=== PATIENT | male | born 1970 | race Two or more races ===

== ENCOUNTER 2018-03-13 22:56 | Inpatient (IN) | payer OTHER, SELFPAY ==
[~2018-03-13] VITALS: Ht 172.7 cm; Wt 65.8 kg
--- NOTE | 2018-03-13 23:15 | NUR ---
PROVIDER IN TO EVAL.
--- NOTE | 2018-03-13 23:27 | NUR ---
PT IN RADIOLOGY. WILL ASSESS UPON RETURN.
[2018-03-13] MEDS ORDERED: LIDOCAINE 1%, 10ML INFIL ONE (23:30)
[2018-03-13] MEDS ORDERED: DIPH,PERTUSS(ACELL),TET VAC/PF 0.5 ML IM-VACC ONE (23:30)
--- NOTE | 2018-03-13 23:55 | NUR ---
PT RETURNED FROM RAD. PER TECH, PT WITH POSS BLEED. PER FAMILY, PT WAS FOUND AT BOTTOM OF THE STAIRS TONIGHT. PRESENTS WITH LAC TO BACK OF HEAD. +ETOH. PT ANSWERING QUESTIONS APPROPRIATELY OTHER THAN PLACE. OBEYS COMMANDS. PUPILS DEMETRIS. IV ACCESS OBTAINED.
[2018-03-13 23:56] LABS: BASOPHILS # (AUTO) 0.07 x10^3/uL (0-0.1); BASOPHILS % (AUTO) 1 % (0-1); EOSINOPHILS # (AUTO) 0.05 x10^3/uL (0-0.4); EOSINOPHILS % (AUTO) 1 % (1-7); LYMPHOCYTES # (AUTO) 2.48 x10^3/uL (1-3.4); LYMPHOCYTES % (AUTO) 35 % (22-44); MD NO; MEAN CORPUSCULAR HEMOGLOBIN 30.7 pg (27.5-34.5); MEAN CORPUSCULAR HGB CONC 33.9 g/dL (33.2-36.2); MEAN CORPUSCULAR VOLUME 90.4 fL (81-97); MONOCYTES # (AUTO) 0.49 x10^3/uL (0.2-0.8); MONOCYTES % (AUTO) 7 % (2-9); NEUTROPHILS # (AUTO) 4.08 x10^3/uL (1.8-6.8); NEUTROPHILS % (AUTO) 57 % (42-75); PLATELET COUNT 169 x10^3/uL (130-400); RED BLOOD COUNT 5.37 x10^6/uL (4.38-5.82); RED CELL DISTRIBUTION WIDTH 12.6 % (9.4-14.8)
[2018-03-14] MEDS ORDERED: SODIUM CHLORIDE FLUSH 10ML SYR IVF ONE
[2018-03-14 00:05] LABS: INTERNATIONAL NORMALIZED RATIO 0.98 (0.93-1.1); PROTHROMBIN TIME 10.4 Seconds (9.6-11.5)
[2018-03-14] MEDS ORDERED: DIPH,PERTUSS(ACELL),TET VAC/PF 0.5 ML IM-VACC ONE ×2 (00:06)
[2018-03-14] MEDS ORDERED: LIDOCAINE-MPF 1%, 5ML ONE (00:06)
[2018-03-14 00:08] LABS: ALANINE AMINOTRANSFERASE 41 U/L (12-78); ANION GAP 10 mmol/L (5-15); CALCIUM 8.8 mg/dL (8.5-10.1); CHLORIDE 98 mmol/L (98-107)
[2018-03-14 00:11] LABS: ALKALINE PHOSPHATASE 223 U/L (45-117); BILIRUBIN,TOTAL 0.5 mg/dL (0.2-1.0); TOTAL PROTEIN 8.3 g/dL (6.4-8.2)
[2018-03-14] MEDS ORDERED: NS + 20MEQ KCL 1,000 ML IV SCH (00:23)
--- NOTE | 2018-03-14 00:25 | NUR ---
DR CABRAL IN TO EVAL. LAC REPAIRED BY RELIEF CAPTAIN. VSS. NO ACUTE NEURO CHANGES NOTED AT THIS TIME.
[2018-03-14] MEDS ORDERED: DEXTROSE 50%, 50ML SYRINGE IVPush PRN (00:30)
[2018-03-14] MEDS ORDERED: LORazepam 1MG TABLET PO PRN (00:30)
[2018-03-14] MEDS ORDERED: POLYETHYLENE GLYCOL 17 GM PACKET PO PRN (00:30)
[2018-03-14] MEDS ORDERED: HYDROcodone/APAP 5/325 TABLET PO PRN (00:30)
[2018-03-14] MEDS ORDERED: GLUCAGON 1 MG IM PRN (00:30)
[2018-03-14] MEDS ORDERED: LORazepam 2 MG/ML, 1ML IVPush PRN (00:30)
[2018-03-14] MEDS ORDERED: DEXTROSE 4 GM TAB.CHEW PO PRN (00:30)
[2018-03-14] MEDS ORDERED: ONDANSETRON 2MG/ML, 2ML IVPush PRN (00:30)
[2018-03-14] MEDS ORDERED: DOCUSATE 100 MG CAPSULE PO PRN (00:30)
[2018-03-14] MEDS ORDERED: morphine SULFATE 10 MG/ML, 1ML IVPush PRN (00:30)
[2018-03-14] MEDS ORDERED: MORPHINE SULFATE 4 MG/ML, 1ML IVPush ONE (00:30)
[2018-03-14] MEDS ORDERED: ONDANSETRON 2MG/ML, 2ML IVPush ONE (00:30)
--- NOTE | 2018-03-14 00:35 | NUR ---
PT TO XRAY.
[2018-03-14] MEDS: ACETAMINOPHEN 325 MG TABLET PO PRN ×2 (02:28→20:10)
[2018-03-14] MEDS ORDERED: MORPHINE SULFATE 4 MG/ML, 1ML ONE (02:57)
[2018-03-14 03:38] VITALS: BP 115/74
[2018-03-14 04:00] VITALS: BP 107/74
[2018-03-14] MEDS: SODIUM CHLORIDE FLUSH 10ML SYR IVF SCH ×2 (08:00→20:11)
[2018-03-14] MEDS: INSULIN LISPRO 100 UNITS/ML, PEN SQ-INSULIN SCH ×5 (08:00→20:11)
[2018-03-14] MEDS: PANTOPROZOLE 40MG TABLET PO SCH (08:00)
[2018-03-14 09:36] LABS: MEAN CORPUSCULAR HEMOGLOBIN 30.7 pg (27.5-34.5); MEAN CORPUSCULAR HGB CONC 34.1 g/dL (33.2-36.2); MEAN CORPUSCULAR VOLUME 89.9 fL (81-97); MEAN PLATELET VOLUME 10.1 fL (7.4-10.4); PLATELET COUNT 176 x10^3/uL (130-400); RED BLOOD COUNT 4.92 x10^6/uL (4.38-5.82); RED CELL DISTRIBUTION WIDTH 12.8 % (9.4-14.8)
[2018-03-14 09:47] LABS: ALANINE AMINOTRANSFERASE 37 U/L (12-78); ALBUMIN 3.6 g/dL (3.4-5.0); ANION GAP 11 mmol/L (5-15); CALCIUM 8.2 mg/dL (8.5-10.1); CHLORIDE 106 mmol/L (98-107); CREATININE 0.91 mg/dL (0.7-1.3)
[2018-03-14 09:49] LABS: ALKALINE PHOSPHATASE 135 U/L (45-117); BILIRUBIN,TOTAL 0.7 mg/dL (0.2-1.0); TOTAL PROTEIN 7.6 g/dL (6.4-8.2)
[2018-03-14 09:50] LABS: BASOPHILS # (AUTO) 0.01 x10^3/uL (0-0.1); BASOPHILS % (AUTO) 0 % (0-1); EOSINOPHILS % (AUTO) 0 % (1-7); LYMPHOCYTES % (AUTO) 13 % (22-44); MD SCAN; MONOCYTES # (AUTO) 0.54 x10^3/uL (0.2-0.8); MONOCYTES % (AUTO) 6 % (2-9); NEUTROPHILS % (AUTO) 81 % (42-75)
[2018-03-14 10:14] LABS: RAPID INFLUENZA A Negative (Negative); RAPID INFLUENZA B Negative (Negative)
[2018-03-14 11:12] LABS: HEMOGLOBIN A1C 13.1 % (4.2-6.3)
[2018-03-14 13:18] VITALS: BP 136/73
[2018-03-14] MEDS: MVI ADULT 10 ML, THIAMINE 200 MG, FOLIC ACID 1 MG in SODIUM CHLORIDE 0.45% 1,000 ML IV SCH (14:03)
[2018-03-14] MEDS: INSULIN GLARGINE 100 UNITS/ML, PEN SQ-INSULIN SCH ×2 (14:03→23:43)
[2018-03-14 14:15] LABS: MICROSCOPIC NOT IND
[2018-03-14 14:27] LABS: AMPHETAMINE SCREEN, URINE Negative (Negative); BARBITURATE SCREEN, URINE Negative (Negative); BENZODIAZEPINE SCREEN, URINE Negative (Negative); CANNABINOID SCREEN, URINE Negative (Negative); COCAINE SCREEN, URINE Negative (Negative); METHADONE SCREEN, URINE Negative (Negative); OPIATE SCREEN, URINE Positive (Negative)
[2018-03-14 20:00] VITALS: BP_SYST 131; BP_SYST 133; BP_DIAS 79
[2018-03-15 03:50] VITALS: BP 126/76
[2018-03-15 05:30] LABS: BASOPHILS # (AUTO) 0.01 x10^3/uL (0-0.1); BASOPHILS % (AUTO) 0 % (0-1); EOSINOPHILS # (AUTO) 0.15 x10^3/uL (0-0.4); EOSINOPHILS % (AUTO) 2 % (1-7); LYMPHOCYTES % (AUTO) 36 % (22-44); MD NO; MEAN CORPUSCULAR HEMOGLOBIN 30.7 pg (27.5-34.5); MEAN CORPUSCULAR HGB CONC 33.9 g/dL (33.2-36.2); MEAN CORPUSCULAR VOLUME 90.7 fL (81-97); MEAN PLATELET VOLUME 10.3 fL (7.4-10.4); MONOCYTES # (AUTO) 0.52 x10^3/uL (0.2-0.8); MONOCYTES % (AUTO) 8 % (2-9); NEUTROPHILS # (AUTO) 3.62 x10^3/uL (1.8-6.8); NEUTROPHILS % (AUTO) 54 % (42-75); PLATELET COUNT 141 x10^3/uL (130-400); RED BLOOD COUNT 4.53 x10^6/uL (4.38-5.82); RED CELL DISTRIBUTION WIDTH 12.8 % (9.4-14.8)
[2018-03-15 05:40] LABS: CHLORIDE 104 mmol/L (98-107)
[2018-03-15 05:46] LABS: ANION GAP 8 mmol/L (5-15); CALCIUM 8.2 mg/dL (8.5-10.1); CREATININE 0.74 mg/dL (0.7-1.3)
[2018-03-15 06:45] VITALS: BP 122/72
[2018-03-15] MEDS: PANTOPROZOLE 40MG TABLET PO SCH (07:25)
[2018-03-15] MEDS: ACETAMINOPHEN 325 MG TABLET PO PRN (07:25)
[2018-03-15] MEDS: SODIUM CHLORIDE FLUSH 10ML SYR IVF SCH (07:26)
[2018-03-15] MEDS: INSULIN LISPRO 100 UNITS/ML, PEN SQ-INSULIN SCH ×3 (07:26→16:57)
[2018-03-15] MEDS: INSULIN GLARGINE 100 UNITS/ML, PEN SQ-INSULIN SCH (11:28)
[2018-03-15] MEDS: MVI ADULT 10 ML, THIAMINE 200 MG, FOLIC ACID 1 MG in SODIUM CHLORIDE 0.45% 1,000 ML IV SCH (11:47)
[2018-03-15 12:21] VITALS: BP 108/68
[2018-03-15] MEDS ORDERED: LISI2.5T PO (17:33)
[2018-03-15] MEDS ORDERED: INSU100I13 SQ-INSULIN (17:33)
[2018-03-15] MEDS ORDERED: METF1000 PO (17:33)
== END 2018-03-15 18:29 | disposition home or self-care (01) | DRG 84 ==
LOC: ED 22:56 → EDIP 23:48 → ED 03-14 00:14 → SUATTDRO 03-14 00:17 → CCU 03-14 01:16 → 4WST 03-14 11:46
PROVIDERS: ADMIT Family Medicine; ATTEND Family Medicine
PROC: 0HQ0XZZ Repair Scalp Skin, External Approach (ICD-10-PCS; principal; 2018-03-13)
DX: S06.6X9A Traumatic subarachnoid hemorrhage with loss of consciousness of unspecified duration, initial encounter (principal); S06.5X9A Traumatic subdural hemorrhage with loss of consciousness of unspecified duration, initial encounter; W18.39XA Other fall on same level, initial encounter; E11.65 Type 2 diabetes mellitus with hyperglycemia; F10.129 Alcohol abuse with intoxication, unspecified; F17.210 Nicotine dependence, cigarettes, uncomplicated; M48.02 Spinal stenosis, cervical region; S01.01XA Laceration without foreign body of scalp, initial encounter; Y93.89 Activity, other specified; Y92.89 Other specified places as the place of occurrence of the external cause; Y99.8 Other external cause status; Z79.4 Long term (current) use of insulin; Z83.3 Family history of diabetes mellitus
CPT/HCPCS: 36415; 70450; 71045; 72110; 72125; 80048; 80053; 80307; 81003; 82962; 83036; 83735; 84100; 85025; 85610; 85730; 87040; 87081; 87400; 90715; 93005; G0378; J3411; J3480; 92523-GN; J1815; J2270